=== PATIENT | female | born 1980 | race African-American/Black ===

== ENCOUNTER 2020-04-26 00:05 | Emergency (ER) | payer MEDICAID ==
[~2020-04-26] VITALS: Ht 162.6 cm; Wt 72.6 kg
[2020-04-26] MEDS ORDERED: HYDROCODON-ACE1 EA15 ORAL (00:38)
[2020-04-26] MEDS ORDERED: AUGMENTIN 875-1 EAC1 ORAL (00:38)
--- NOTE | 2020-04-26 00:38 | Emergency Room Report ---
History of Present Illness General Chief Complaint: Toothache Source: Patient Present Illness HPI This is a 40-year-old female with no past medical history. She presents with chief complaint of dental pain. Onset is 1 day. Pain is 10 out of 10. Localized to the left lower jaw. There is some swelling. No fever chills but no drainage. Nothing made it better. Eating made it worse. Allergies: Coded Allergies: No Known Allergies (Unverified , 04/26/20) COVID-19 Screening Contact w/high risk pt: No Experienced COVID-19 symptoms?: No COVID-19 Testing performed REAL ESTATE REP: No Patient History Past Medical History: see triage record, old chart reviewed Past Surgical History: none Pertinent Family History: none Last Menstrual Period: NA Now: No : 5 Para: 5 Immunizations: other Reviewed Nursing Documentation: PMH: Agreed; PSxH: Agreed Nursing Documentation-PMH Past Medical History: No Stated History Review of Systems Eye: Denies: eye pain, blurred vision ENT: Denies: ear pain, nose congestion, throat swelling Respiratory: Denies: cough, shortness of breath Cardiovascular: Denies: chest pain, palpitations Gastrointestinal: Denies: abdominal pain, diarrhea, nausea, vomiting Musculoskeletal: Denies: back pain, joint pain Skin: Denies: rash Neurological: Denies: headache, numbness Endocrine: Denies: increased thirst, increased urine Hematologic/Lymphatic: Denies: easy bruising All Other Systems: negative except mentioned in HPI Physical Exam Vital Signs Date Time Temp Pulse Resp B/P (MAP) Pulse Ox O2 Delivery O2 Flow Rate FiO2 04/26/20 00:17 98.4 90 17 131/76 (94) 96 Room Air Vitals normal Sp02 EP Interpretation: reviewed, normal General Appearance: well appearing, no apparent distress, alert Head: normocephalic, atraumatic Eyes: bilateral eye PERRL, bilateral eye EOMI ENT: hearing grossly normal, normal pharynx, other - Oropharynx: Left lower jaw showed decayed second molar. No obvious abscess but there is slight swelling. Tenderness to percussion. Neck: full range of motion, supple, no meningismus Respiratory: chest non-tender, lungs clear, normal breath sounds Cardiovascular #1: regular rate, rhythm, no murmur Gastrointestinal: normal bowel sounds, non tender, no mass, no organomegaly, no bruit, non-distended Musculoskeletal: back normal, normal range of motion, gait/station normal Psychiatric: mood/affect normal Medical Decision Making Diagnostic Impression: Primary Impression: Dental abscess ER Course Patient presents with a dental abscess. At this moment in time, I do not see one that can be I&D. Antibiotics and pain medication given here. Will discharge home with follow-up with dentist ANDRES. Last Vital Signs Date Time Temp Pulse Resp B/P (MAP) Pulse Ox O2 Delivery O2 Flow Rate FiO2 04/26/20 00:17 98.4 90 17 131/76 (94) 96 Room Air Status: improved Disposition: HOME, SELF-CARE Condition: Stable Scripts Hydrocodone/Acetaminophen 5-325* (HYDROCODONE/ACETAMINOPHEN 5-325*) 1 Each Tablet 1 TAB ORAL Q6H PRN for For Pain, #20 TAB 0 Refills Prov: Carlos A Mejia MD 04/26/20 Amoxicillin/Potassium Clav 875-125* (AUGMENTIN 875-125 TABLET*) 1 Each Tablet 1 TAB ORAL TWICE A DAY, #14 TAB Prov: Carlos A Mejia MD 04/26/20 Referrals: [facility]/,REFERRING (PCP) Additional Instructions: Follow-up with dentist ANDRES. Return if symptoms worsen. Carlos A Mejia MD Apr 26, 2020 00:38
[2020-04-26 00:45] VITALS: BP 131/76
[2020-04-26] MEDS ORDERED: HYDROcodone/Acetamin 5/325 tab ORAL ONE (00:45)
[2020-04-26] MEDS ORDERED: Augmentin 875mg Tab ORAL ONE (00:45)
== END 2020-04-26 00:45 | disposition home or self-care (01) ==
LOC: EMR 00:31
DX: K04.7 Periapical abscess without sinus (principal)
CPT/HCPCS: 99282

== ENCOUNTER 2020-06-21 20:11 | Emergency (ER) | payer MEDICAID ==
[~2020-06-21] VITALS: Ht 162.6 cm; Wt 72.6 kg
[~2020-06-21 20:11] MED LIST: AUGMENTIN 875-1 EAC1 ORAL; HYDROCODON-ACE1 EA15 ORAL
[2020-06-21] MEDS ORDERED: Fluorescein Strips LEFT EYE ONE (21:00)
--- NOTE | 2020-06-21 21:05 | NUR ---
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
[2020-06-21] MEDS ORDERED: HYDROCODON-ACE1 EA15 ORAL (21:18)
[2020-06-21] MEDS ORDERED: POLYTRIM OP SOL10 ML OPHTHALM (21:18)
--- NOTE | 2020-06-21 21:19 | Emergency Room Report ---
History of Present Illness General Chief Complaint: Eye Problems Source: Patient Present Illness HPI This is a 40-year-old female with no past medical history. She presents with chief complaint of left eye pain. Onset today. She left her contact lens in for 3 days. She could get it out and was able to get it out today. Afterward it was burning and painful. Worse with lights. Better with darkness. Pain is 10 out of 10. She has tearing and sharp pain. No trauma. No discharge. Allergies: Coded Allergies: No Known Allergies (Unverified , 04/26/20) COVID-19 Screening Contact w/high risk pt: No Experienced COVID-19 symptoms?: No COVID-19 Testing performed FIT MODEL: No Patient History Past Medical History: see triage record, old chart reviewed Past Surgical History: none Pertinent Family History: none Social History: Denies: smoking Last Menstrual Period: na Now: No Immunizations: other Reviewed Nursing Documentation: PMH: Agreed; PSxH: Agreed Nursing Documentation-PMH Past Medical History: No Stated History Review of Systems Eye: Reports: eye pain; Denies: blurred vision ENT: Denies: ear pain, nose congestion, throat swelling Respiratory: Denies: cough, shortness of breath Cardiovascular: Denies: chest pain, palpitations Gastrointestinal: Denies: abdominal pain, diarrhea, nausea, vomiting Musculoskeletal: Denies: back pain, joint pain Skin: Denies: rash Neurological: Denies: headache, numbness Endocrine: Denies: increased thirst, increased urine Hematologic/Lymphatic: Denies: easy bruising All Other Systems: negative except mentioned in HPI Physical Exam Vital Signs Date Time Temp Pulse Resp B/P (MAP) Pulse Ox O2 Delivery O2 Flow Rate FiO2 06/21/20 20:46 98.4 83 16 115/66 (82) 99 Room Air Vitals normal Sp02 EP Interpretation: reviewed, normal General Appearance: well appearing, no apparent distress, alert Head: normocephalic, atraumatic Eyes: left eye other - Left eye: Conjunctiva and sclera is very injected. Patient is did not cooperate well with eye exam. What I can see, there is small corneal abrasion at the 6:00 through 7 o'clock position.; bilateral eye PERRL, bilateral eye EOMI ENT: hearing grossly normal, normal pharynx Neck: full range of motion, supple, no meningismus Respiratory: chest non-tender, lungs clear, normal breath sounds Cardiovascular #1: regular rate, rhythm, no murmur Gastrointestinal: normal bowel sounds, non tender, no mass, no organomegaly, no bruit, non-distended Musculoskeletal: back normal, normal range of motion, gait/station normal Psychiatric: mood/affect normal Medical Decision Making Diagnostic Impression: Primary Impression: Corneal abrasion due to contact lens Qualified Codes: H18.822 - Corneal disorder due to contact lens, left eye ER Course Presents with a corneal abrasion. Negative Gutierrez sign. Last Vital Signs Date Time Temp Pulse Resp B/P (MAP) Pulse Ox O2 Delivery O2 Flow Rate FiO2 06/21/20 20:46 98.4 83 16 115/66 (82) 99 Room Air Status: improved Disposition: HOME, SELF-CARE Condition: Stable Scripts Hydrocodone/Acetaminophen 5-325* (HYDROCODONE/ACETAMINOPHEN 5-325*) 1 Each Tablet 1 TAB ORAL Q6H PRN for For Pain, #15 TAB 0 Refills Prov: Carlos A Mejia MD 06/21/20 Polymyxin/Trimethoprim (Polytrim Eye Drops) 10 Ml Drops 2 DROP OPHTHALM THREE TIMES A DAY, #1 EA Instill in affected eye for 7 days Prov: Carlos A Mejia MD 06/21/20 Referrals: [facility]ERR[facility] (PCP) Additional Instructions: Follow-up with your doctor in 7 days. Follow-up with an eye doctor in 2 to 3 days if not better. Return if worse. Carlos A Mejia MD Jun 21, 2020 21:18
[2020-06-21 21:30] VITALS: BP 115/66
[2020-06-21] MEDS ORDERED: HYDROcodone/Acetamin 5/325 tab ORAL ONE (21:30)
--- NOTE | 2020-06-21 21:30 | NUR ---
ER DISCHARGE NOTE: Patient is cleared to be discharged per ERMD, pt is aox4, on room air, with stable vital signs. pt was given dc and prescription instructions, pt was able to verbalize understanding, pt id band removed without complications. pt is able to ambulate with steady gait. pt took all belongings.
== END 2020-06-21 21:35 | disposition home or self-care (01) ==
LOC: EMR 21:08
DX: S05.02XA Injury of conjunctiva and corneal abrasion without foreign body, left eye, initial encounter (principal); X58.XXXA Exposure to other specified factors, initial encounter; Y92.9 Unspecified place or not applicable
CPT/HCPCS: 99282

== ENCOUNTER 2020-07-05 21:47 | Emergency (ER) | payer MEDICAID ==
[~2020-07-05] VITALS: Ht 162.6 cm; Wt 72.6 kg
[~2020-07-05 21:47] MED LIST changes: +POLYTRIM OP SOL10 ML OPHTHALM
--- NOTE | 2020-07-05 22:18 | NUR ---
ED Nurse Note: pt presents to ED c/o toothache x a couple months. states that she has an infected tooth in the L bottom row of teeth. she has been using topical pain relief gel without much relief of symptoms, states that the infection and pain have gotten wrose.
[2020-07-05 22:19] VITALS: BP 122/65
[2020-07-05] MEDS ORDERED: IBUPROFEN600 M1 ORAL (22:42)
[2020-07-05] MEDS ORDERED: AUGMENTIN 875-1 EAC1 ORAL (22:42)
[2020-07-05] MEDS ORDERED: HYDROCODON-ACE1 EA15 ORAL (22:42)
--- NOTE | 2020-07-05 22:42 | Emergency Room Report ---
History of Present Illness General Chief Complaint: Toothache Source: Patient Present Illness HPI This a 40-year-old female with no significant past medical history. She presents with chief complaint of dental pain. This is a chronic issue for a few months. She lost her insurance and unable to see a dentist. Her pain is localized to the left lower jaw. She has decay and cracked tooth there. No swelling. This most recent episode is been ongoing for few days. No fever chills. Pain is 8 out of 10. Worse with eating and drinking. Better with rest. No injury. Allergies: Coded Allergies: No Known Allergies (Unverified , 04/26/20) COVID-19 Screening Contact w/high risk pt: No Experienced COVID-19 symptoms?: No COVID-19 Testing performed DESIGN PRINTER BALLOON: No Patient History Past Medical History: see triage record, old chart reviewed Past Surgical History: none Pertinent Family History: none Social History: Denies: drug use Now: No Immunizations: other Reviewed Nursing Documentation: PMH: Agreed; PSxH: Agreed Nursing Documentation-PMH Past Medical History: No History, Except For Hx Hypertension: Yes Review of Systems Eye: Denies: eye pain, blurred vision ENT: Denies: ear pain, nose congestion, throat swelling Respiratory: Denies: cough, shortness of breath Cardiovascular: Denies: chest pain, palpitations Gastrointestinal: Denies: abdominal pain, diarrhea, nausea, vomiting Musculoskeletal: Denies: back pain, joint pain Skin: Denies: rash Neurological: Denies: headache, numbness Endocrine: Denies: increased thirst, increased urine Hematologic/Lymphatic: Denies: easy bruising All Other Systems: negative except mentioned in HPI Physical Exam Vital Signs Date Time Temp Pulse Resp B/P (MAP) Pulse Ox O2 Delivery O2 Flow Rate FiO2 07/05/20 21:55 98.2 79 16 122/65 (84) 99 Room Air Vitals normal Sp02 EP Interpretation: reviewed, normal General Appearance: well appearing, no apparent distress, alert Head: normocephalic, atraumatic Eyes: bilateral eye PERRL, bilateral eye EOMI ENT: hearing grossly normal, normal pharynx, other - Her left lower wisdom tooth is decayed down to the nub. Tender to percussion. Neck: full range of motion, supple, no meningismus Respiratory: chest non-tender, lungs clear, normal breath sounds Cardiovascular #1: regular rate, rhythm, no murmur Gastrointestinal: normal bowel sounds, non tender, no mass, no organomegaly, no bruit, non-distended Musculoskeletal: back normal, normal range of motion, gait/station normal Psychiatric: mood/affect normal Medical Decision Making Diagnostic Impression: Primary Impression: Dental abscess ER Course Patient with dental decay and possible infection. We will put her on ant ibiotics. She will need to see dentist ANDRES. Last Vital Signs Date Time Temp Pulse Resp B/P (MAP) Pulse Ox O2 Delivery O2 Flow Rate FiO2 07/05/20 22:19 98.2 85 16 122/65 99 Room Air Status: improved Disposition: HOME, SELF-CARE Condition: Stable Scripts Ibuprofen* (MOTRIN*) 600 Mg Tablet 600 MG ORAL Q6H PRN for For Pain, #30 TAB 0 Refills Prov: Carlos A Mejia MD 07/05/20 Hydrocodone/Acetaminophen 5-325* (HYDROCODONE/ACETAMINOPHEN 5-325*) 1 Each Tablet 1 TAB ORAL Q6H PRN for For Pain, #10 TAB 0 Refills Prov: Carlos A Mejia MD 07/05/20 Amoxicillin/Potassium Clav 875-125* (AUGMENTIN 875-125 TABLET*) 1 Each Tablet 1 TAB ORAL TWICE A DAY, #14 TAB Prov: Carlos A Mejia MD 07/05/20 Referrals: [facility]ERR[facility] (PCP) Patient Instructions: Dental Pain Additional Instructions: See dentist ANDRES. You may call [facility] or [facility] for an appointment. Return if symptoms worsen. Carlos A Mejia MD Jul 05, 2020 22:42
[2020-07-05] MEDS ORDERED: HYDROcodone/Acetamin 5/325 tab ORAL ONE (22:45)
[2020-07-05] MEDS ORDERED: Augmentin 875mg Tab ORAL ONE (22:45)
[2020-07-05 22:53] VITALS: BP 122/65
== END 2020-07-05 22:54 | disposition home or self-care (01) ==
LOC: EMR 22:14
DX: K04.7 Periapical abscess without sinus (principal); I10 Essential (primary) hypertension
CPT/HCPCS: 99282

== ENCOUNTER 2020-09-01 19:07 | Emergency (ER) | payer MEDICAID ==
[~2020-09-01] VITALS: Ht 162.6 cm; Wt 72.6 kg
[~2020-09-01 19:07] MED LIST changes: +IBUPROFEN600 M1 ORAL
--- NOTE | 2020-09-01 19:20 | NUR ---
ED Nurse Note: Patient walked into ED c/o toothache onset for the past 2 days. patient presents with swelling located primarily in her jaw, unable to eat and tolerate fluids with cold or hot temperature, states that she is unable to see a dentist. patient rates her pain a 10/10 pain
[2020-09-01 19:25] VITALS: BP 131/77
[2020-09-01] MEDS: HYDROcodone/Acetamin 5/325 tab ORAL ONE (19:49)
--- NOTE | 2020-09-01 19:49 | Emergency Room Report ---
History of Present Illness General Chief Complaint: Toothache Source: Patient Present Illness HPI 40 YO Female. presents to the ED c/o 9/10 pain, swelling, and erythema to the lower right jaw, on the gumline of a previously with a broken tooth. x 2 days. She denies fevers or chills. She reports having similar issues in the past but on the left side. She reports Tylenol and Motrin at home are not working. Pt. reports broken tooth is not acute. She denies neck pain/stiffness, sinus pain pressure. Eating and drinking exacerbate her pain. She reports nothing is making it feel better at this point. Allergies: Coded Allergies: No Known Allergies (Unverified , 04/26/20) COVID-19 Screening Contact w/high risk pt: No Experienced COVID-19 symptoms?: No COVID-19 Testing performed CERTIFIED PEDIATRIC NURSE PRACTITIONER: No Patient History Past Medical History: see triage record, old chart reviewed Past Surgical History: - x3 Last Menstrual Period: n/a Now: No Reviewed Nursing Documentation: PMH: Agreed; PSxH: Agreed Nursing Documentation-PMH Past Medical History: No History, Except For Hx Hypertension: Yes Review of Systems All Other Systems: negative except mentioned in HPI Physical Exam Vital Signs Date Time Temp Pulse Resp B/P (MAP) Pulse Ox O2 Delivery O2 Flow Rate FiO2 09/01/20 19:20 98.6 85 18 131/77 (95) 98 Room Air Sp02 EP Interpretation: reviewed, normal General Appearance: no apparent distress, alert, GCS 15, non-toxic Head: normocephalic, atraumatic Eyes: bilateral eye normal inspection, bilateral eye PERRL ENT: hearing grossly normal, normal pharynx, normal voice, uvula midline, moist mucus membranes, other - palpable fluctuance along the gum line of tooth no. 29 with swelling. tooth 29 is broken down to the gum line. Neck: full range of motion, no meningismus, no bony tend Respiratory: lungs clear, normal breath sounds, speaking full sentences Cardiovascular #1: regular rate, rhythm Musculoskeletal: normal range of motion, gait/station normal, non-tender Neurologic: alert, motor strength/tone normal, oriented x3, sensory intact, responsive, speech normal Psychiatric: judgement/insight normal Lymphatic: other - anterior cervical LAD bilaterally. Medical Decision Making PA Attestation Dr. Estrada is my supervising Physician whom patient management has been discussed with. Diagnostic Impression: Primary Impression: Dental infection ER Course 40 YO Female. presents to the ED c/o 9/10 pain, swelling, and erythema to the lower right jaw, on the gumline of a previously with a broken tooth. x 2 days. She denies fevers or chills. She reports having similar issues in the past but on the left side. She reports Tylenol and Motrin at home are not working. Pt. reports broken tooth is not acute. She denies neck pain/stiffness, sinus pain pressure. Eating and drinking exacerbate her pain. She reports nothing is making it feel better at this point. Ddx considered but are not limited to cellulitis, dental abscess, orbital cellulitis, d/l tooth, dental pain. trigeminal neuralgia Vital signs: are WNL, pt. is afebrile H&PE are most consistent with gum abscess. - palpable fluctuance along the gum line of tooth no. 29 with swelling. tooth 29 is broken down to the gum line. ORDERS: none required at this time, the diagnosis is clinical ED INTERVENTIONS: - [place] PO - I & D recommended - Pt. declines drainage. She requests oral medications. PT. to follow up at outpatient dental clinics [facility]. Given strict ED return precautions especially since declining drainage procedure. DISCHARGE: At this time pt. is stable for d/c to home. Will provide printed patient care instructions, and any necessary prescriptions. Care plan and follow up instructions have been discussed with the patient prior to discharge. Last Vital Signs Date Time Temp Pulse Resp B/P (MAP) Pulse Ox O2 Delivery O2 Flow Rate FiO2 09/01/20 19:20 98.6 85 18 131/77 (95) 98 Room Air Disposition: HOME, SELF-CARE Condition: Stable Referrals: [facility] Patient Instructions: Dental Abscess, [id number], Dental Pain Additional Instructions: Take medications as directed. Do not drink alcohol, drive, or operate heavy machinery while taking [place] as this may cause drowsiness. Follow up with a Dentist within 72 hours, even if your symptoms have resolved. --Please review list of Dental clinics, if you do not already have a Dentist Return sooner to ED if new symptoms occur, or current symptoms become worse. - Please note that this Emergency Department Report was dictated using Dragon record retrieval specialist technology software, occasionally this can lead to erroneous entry secondary to interpretation by the dictation equipment. Iris Kruger Sep 01, 2020 19:48
[2020-09-01] MEDS ORDERED: IBUPROFEN600 M1 ORAL (19:50)
[2020-09-01] MEDS ORDERED: HYDROCODON-ACE1 EA15 ORAL (19:50)
[2020-09-01] MEDS ORDERED: CHLORHEXIDINE473 ML MM (19:50)
[2020-09-01] MEDS ORDERED: AUGMENTIN 875-1 EAC1 ORAL (19:50)
[2020-09-01 20:00] VITALS: BP 125/72
== END 2020-09-01 20:00 | disposition home or self-care (01) ==
LOC: EMR 20:00
DX: K04.7 Periapical abscess without sinus (principal); I10 Essential (primary) hypertension; S02.5XXA Fracture of tooth (traumatic), initial encounter for closed fracture; X58.XXXA Exposure to other specified factors, initial encounter; Y93.9 Activity, unspecified; Y92.9 Unspecified place or not applicable
CPT/HCPCS: 99282